=== PATIENT | female | born 2005 | race Two or more races ===

== ENCOUNTER 2025-06-21 15:22 | Emergency (ER) | payer MEDICAID, OTHER ==
[~2025-06-21] VITALS: Ht 175.3 cm; Wt 70.1 kg
[2025-06-21] MEDS: IPRATROPIUM BROM 0.5 MG/2.5ML INH SOL HHN ONE (15:48)
[2025-06-21] MEDS: ALBUTEROL SULF 2.5 MG/0.5ML(0.5%) NEB SOLN HHN ONE (15:48)
--- NOTE | 2025-06-21 15:51 | ED.PDOC ---
SOB-HPI HPI Comments 19 y/o F, with PMHx of asthma presents to the ED for CC of shortness of breath. Patient states, she has been experiencing shortness of breath with an associated productive cough x3days. 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 Patient denies fever, chills, or chest pain. 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 Hx Family History Family History: Unknown Social History Smoker: Non-Smoker Alcohol: Denies ETOH Use Drugs: Denies Drug Use Lives In: Home Constitutional: denies: chills, diaphoresis, fatigue, fever, malaise, sweats, weakness, others EENTM: denies: blurred vision, double vision, ear bleeding, ear discharge, ear drainage, ear pain, ear ringing, eye pain, eye redness, hearing loss, mouth pain, mouth swelling, nasal discharge, nose bleeding, nose congestion, nose pain, photophobia, tearing, throat pain, throat swelling, voice changes, others Respiratory: reports: cough, shortness of breath; denies: hemoptysis, orthopnea, SOB at rest, SOB with excertion, stridor, wheezing, others Cardiovascular: denies: chest pain, dizzy spells, diaphoresis, Dyspnea on exertion, edema, irregular heart beat, left arm pain, lightheadedness, palpitations, PND, syncope, others Gastrointestinal: denies: abdomen distended, abdominal pain, blood streaked bowels, constipated, diarrhea, dysphagia, difficulty swallowing, hematemesis, melena, nausea, poor appetite, poor fluid intake, rectal bleeding, rectal pain, vomiting, others Genitourinary: denies: abnormal vagina bleeding, burning, dyspareunia, dysuria, flank pain, frequency, hematuria, incontinence, pain, , vagina discharge, urgency, others Neurological: denies: dizziness, fainting, headache, left sided numbness, left sided weakness, numbness, paresthesia, pre-existing deficit, right sided numbness, right sided weakness, seizure, speech problems, tingling, tremors, weakness, others Musculoskeletal: denies: back pain, gout, joint pain, joint swelling, muscle pa in, muscle stiffness, neck pain, others Integumetry: denies: bruises, change in color, change in hair/nails, dryness, laceration, lesions, lumps, rash, wounds, others Allergic/Immunocompromised: denies: Difficulty Healing, Frequent Infections, Hives, Itching, others Hematologic/Lymphatic: denies: anemia, blood clots, easy bleeding, easy bruising, swollen glands, others Endocrine: denies: excessive hunger, excessive sweating, excessive thirst, excessive urination, flushing, intolerance to cold, intolerance to heat, unexplained weight gain, unexplained weight loss, others Psychiatric: denies: anxiety, bipolar disorder, depression, hopeless, panic disorder, schizophrenia, sleepless, suicidal, others All Other Systems: Reviewed and Negative Physical Exam General Appearance: Moderate Distress HEENT: Normal ENT Inspection, Pharynx Normal, TMs Normal Neck: Full Range of Motion, Non-Tender, Normal, Normal Inspection Respiratory: Chest Non-Tender, Decreased Breath Sounds, No Accessory Muscle Use, Respiratory Distress, Wheezing Cardiovascular: No Edema, No JVD, No Murmur, No Gallop, Normal Peripheral Pulses, Regular Rate/Rhythm Breast Exam: Deferred Gastrointestinal: No Organomegaly, Non Tender, No Pulsatile Mass, Normal Bowel Sounds, Soft Genitalia: Deferred Pelvic: Deferred Rectal: Deferred Extremities: No calf tenderness, Normal capillary refill, Normal inspection, Normal range of motion, Non-tender, No pedal edema Musculoskeletal : Apperance: Normal Neurologic: Alert, crisis manager II-XII nml as Tested, No Motor Deficits, Normal Affect, Normal Mood, No Sensory Deficits Cerebellar Function: Normal Reflexes: Normal Skin: Dry, Normal Color, Warm Lymphatic: No Adenopathy Was a procedure done? Was a procedure done?: No Differential Dx Differential Diagnosis: Anxiety, Asthma, Sinusitis, Pharyngitis, URI X-Ray, Labs, Meds, VS Vital Signs Date Time Temp Pulse Resp B/P (MAP) Pulse Ox O2 Delivery O2 Flow Rate FiO2 06/21/25 16:00 115 20 93 Room Air* 0 21 06/21/25 16:00 98.6 115 20 126/78 (94) 93 98.6 06/21/25 15:47 16 97 Nasal Cannula* 2 28 06/21/25 15:24 98.6 115 20 126/78 93 98.6 Lab Test 06/21/25 15:40 Range/Units White Blood Count 9.0 4.4-10.8 10^3/uL Red Blood Count 4.53 4.0-5.20 10^6/uL Hemoglobin 13.7 12.2-16.2 g/dL Hematocrit 40.0 36.0-46.0 % Mean Corpuscular Volume 88.3 80.0-100.0 fL Mean Corpuscular Hemoglobin 30.2 28.0-32.0 pg Mean Corpuscular Hemoglobin Concent 34.2 32.0-36.0 g/dL Red Cell Distribution Width 13.2 11.8-14.3 % Platelet Count 262 140-450 10^3/uL Mean Platelet Volume 7.2 6.9-10.8 fL Neutrophils (%) (Auto) 79.6 37.0-80.0 % Lymphocytes (%) (Auto) 10.0 10.0-50.0 % Monocytes (%) (Auto) 6.1 0.0-12.0 % Eosinophils (%) (Auto) 3.7 0.0-7.0 % Basophils (%) (Auto) 0.6 0.0-2.0 % Neutrophils # (Auto) 7.2 1.6-8.6 10 ^3/uL Lymphocytes # (Auto) 0.9 0.4-5.4 10 ^3/uL Monocytes # (Auto) 0.6 0-1.3 10 ^3/uL Eosinophils # (Auto) 0.3 0-0.8 10 ^3/uL Basophils # (Auto) 0.1 0-0.2 10 ^3/uL Nucleated Red Blood Cells 0.0 % Sodium Level 140 136-145 mmol/L Potassium Level 3.8 3.5-5.1 mmol/L Chloride Level 106 98-107 mmol/L Carbon Dioxide Level 24 20-31 mmol/L Anion Gap 10 5-15 Blood Urea Nitrogen < 5 L 9-23 mg/dL Creatinine 0.63 0.550-1.02 mg/dL Glomerular Filtration Rate Calc 131 >90 mL/min BUN/Creatinine Ratio 7.9 L 10.0-20.0 Serum Glucose 102 74-106 mg/dL Calcium Level 9.3 8.7-10.4 mg/dL Current Medications Medications (Trade) Dose Ordered Sig/Gena Route Start Time Stop Time Status Last Admin Methylprednisolone Sodium Succinate (Solu Medrol) 125 mg ONCE ONCE IV 06/21/25 15:30 06/21/25 15:31 DC 06/21/25 16:06 Ipratropium Adrian (Atrovent Medneb) 1 mg ONCE ONCE HHN 06/21/25 15:30 06/21/25 15:31 DC 06/21/25 15:48 Albuterol (Ventolin Medneb) 20 mg ONCE ONCE HHN 06/21/25 15:30 06/21/25 15:31 DC 06/21/25 15:48 CXR: IMPRESSION: 1. No acute cardiopulmonary disease. The patient's CBC and chemistry panel is within normal limits The patient was given a continuous breathing treatment of albuterol and Atrovent. The patient was also given Solu-Medrol 125 mg IV push At this time, the patient is being discharged and will follow up with the primary care doctor The patient will return to the emergency department's condition worsens. The patient understands and agrees with the management. Images Reviewed?: Images reviewed and evaluated by me Time of 1ST Reevaluation: 16:15 Reevaluation 1ST: Unchanged Time of 2ND Reevaluation: 18:46 Reevaluation 2ND: Improved Patient Education/Counseling: Diagnosis, Treatment, Prognosis, Need For Follow Up Family Education/Counseling: No Family Present SEPSIS Sepsis Screen Date sepsis recognized/suspect: Jun 21, 2025 Time Sepsis recognized/suspect: 5 Recent Procedure: No On Antibiotic Therapy: No Respiratory Rate >20: No Heart Rate >90: Yes Temp<36 C (96.8 F) or >38.3 C: No SBP <90 or MAP <65 mmHG: No New Acute Mental Status Change: No Is the patient on CPAP, BIPAP,: No Physician Orders Med Neb Initial Treatment (06/21/25 15:28) Heplock Iv (06/21/25 15:28) Pulse Oximetry (06/21/25 15:28) Welding Estimator (06/21/25 15:28) Blood Pressure (06/21/25 15:28) Chest Xray 1 View (06/21/25 15:28) Vital Signs Date Time Temp Pulse Resp B/P (MAP) Pulse Ox O2 Delivery O2 Flow Rate FiO2 06/21/25 16:00 115 20 93 Room Air* 0 21 06/21/25 16:00 98.6 115 20 126/78 (94) 93 98.6 06/21/25 15:47 16 97 Nasal Cannula* 2 28 06/21/25 15:24 98.6 115 20 126/78 93 98.6 Laboratory Tests Test 06/21/25 15:40 White Blood Count 9.0 10^3/uL (4.4-10.8) Medications Medications Dose Ordered Sig/Gena Route Start Time Stop Time Status Last Admin Dose Admin Albuterol 20 mg ONCE ONCE N 06/21/25 15:30 06/21/25 15:31 DC 06/21/25 15:48 Ipratropium Adrian 1 mg ONCE ONCE N 06/21/25 15:30 06/21/25 15:31 DC 06/21/25 15:48 Methylprednisolone Sodium Succinate 125 mg ONCE ONCE IV 06/21/25 15:30 06/21/25 15:31 DC 06/21/25 16:06 Departure 1 Departure Time of Disposition: 18:48 Impression: Primary Impression: Asthmatic bronchitis Qualified Codes: J45.41 - Moderate persistent asthma with (acute) exacerbation Disposition: 01 HOME / SELF CARE / HOMELESS Condition: Fair e-Prescriptions Dextromethorphan-Guaifenesin (Robitussin-Dm) 10 Ml Sr 10 ML GT Q12HP PRN for 7 Days, #30 SYP Prov: AKILA BURRELL MD 06/21/25 Methylprednisolone (Medrol Dosepak) 4 Mg Kal 4 MG PO UD, #21 TAB UAD Prov: AKILA BURRLEL MD 06/21/25 Azithromycin (Zithromax) 1 Gm Pow 1 PACK PO ONCE, #1 PACK Prov: AKILA BURRELL MD 06/21/25 Discharged With: Self Critical Care Note Critical Care Time?: No Stability Stability form required: No Heart Score Heart Score: Heart Score Response (Comments) Value History N/A 0 EKG N/A 0 Age N/A 0 Risk Factors N/A 0 Troponin N/A 0 Total 0 I personally scribed for AKILA BURRELL MD ([email or web address]) on 06/21/25 at 15:51. Electronically submitted by Hayde Jordan ([email or web address]). I personally scribed for AKILA BURRELL MD ([email or web address]) on 06/21/25 at 15:58. Electronically submitted by Hayde Jordan ([email or web address]). I personally scribed for AKILA BURRELL MD ([email or web address]) on 06/21/25 at 16:25. Electronically submitted by Hayde Jordan ([email or web address]). I personally scribed for AKILA BURRELL MD ([email or web address]) on 06/21/25 at 16:27. Electronically submitted by Hayde Jordan ([email or web address]). I personally scribed for AKILA BURRELL MD ([email or web address]) on 06/21/25 at 16:32. Electronically submitted by Hayde Jordan ([email or web address]). AKILA BURRELL MD Jun 21, 2025 15:51
[2025-06-21 16:00] VITALS: PULSE 115; RESP 20; O2SAT 93
[2025-06-21 16:00] LABS: Hematocrit 40.0 % (36.0-46.0); Hemoglobin 13.7 g/dL (12.2-16.2); Mean Corpuscular Hemoglobin 30.2 pg (28.0-32.0); Mean Corpuscular Volume 88.3 fL (80.0-100.0); Nucleated Red Blood Cells % 0.0 %
[2025-06-21] MEDS: methylPREDNISolone SOD SUCC 125 MG/2 ML VL IV ONE (16:06)
--- NOTE | 2025-06-21 16:06 | DVH ---
CHEST RADIOGRAPH INDICATION: sob TECHNIQUE: Single frontal view of the chest was obtained COMPARISON: None FINDINGS: Lines and Tubes: None Lungs: No focal consolidation. Pleura: No effusion. No pneumothorax. Cardiomediastinal contours: Unremarkable Bones: No acute osseous abnormality. IMPRESSION: 1. No acute cardiopulmonary disease.
[2025-06-21 16:09] LABS: Chloride 106 mmol/L (98-107); Potassium 3.8 mmol/L (3.5-5.1); Sodium 140 mmol/L (136-145)
[2025-06-21 16:10] LABS: Anion Gap 10 (5-15); Calcium 9.3 mg/dL (8.7-10.4); Carbon Dioxide 24 mmol/L (20-31)
[2025-06-21 16:15] LABS: Glucose 102 mg/dL (74-106)
[2025-06-21 16:16] LABS: BUN/Creatinine Ratio 7.9 (10.0-20.0); Blood Urea Nitrogen < 5 mg/dL (9-23)
[2025-06-21] MEDS ORDERED: METH4PAK PO (18:45)
[2025-06-21] MEDS ORDERED: AZIT1POW PO (18:45)
[2025-06-21] MEDS ORDERED: DEXT1SYP9 GT (18:47)
[2025-06-21 19:00] VITALS: BP 109/64; PULSE 110; RESP 18; TEMP 98.8; O2SAT 94
== END 2025-06-21 19:20 | disposition home or self-care (01) ==
LOC: ER 15:22
DX: J45.909 Unspecified asthma, uncomplicated (principal); Z79.899 Other long term (current) drug therapy
CPT/HCPCS: 36415; 71045; 80048; 85025; 94644; 96374; 99285; J2919